=== PATIENT | female | born 1945 | race Caucasian/White ===

== ENCOUNTER 2025-03-01 21:23 | Emergency (ER) | payer MEDICARE, OTHER ==
[2025-03-01 23:01] LABS: #Basophils 0.08 10x3/uL (0.0-0.2); #Eosinophils 0.19 10x3/uL (0.0-0.7); #Monocytes 0.78 10x3/uL (0.11-0.59); #Neutrophils 3.66 10x3/uL (1.40-6.50); %Basophils 1.4 % (0.0-1.0); %Eosinophils 3.2 % (0.0-10.0); %Lymphocytes 20.1 % (21.0-51.0); %Monocytes 13.2 % (0.0-10.0); %Neutrophils 61.9 % (42.0-75.0); Hematocrit 37.3 % (36.0-47.0); Hemoglobin 12.9 g/dL (12.0-16.0); Mean Corpuscular Hemoglobin 30.6 pg (27.0-31.0); Mean Corpuscular Volume 88.4 fL (78.0-98.0); Platelet Count 255 10x3/uL (130-400); Red Blood Cell (RBC) Count 4.22 mill/uL (4.20-5.40); White Blood Cell (WBC) Count 5.91 10x3/uL (4.8-10.8)
[2025-03-01 23:58] LABS: ALT (SGPT) 8 U/L (Less than 34); AST (SGOT) 26 U/L (11-34); Albumin 4.2 g/dL (3.1-4.5); Alkaline Phosphatase 110 U/L (40-110); Anion Gap 16 mmol/L (10-20); BUN (Urea Nitrogen) 6 mg/dL (9.8-20.1); Bilirubin, Total 1.2 mg/dL (0.3-1.2); Calc. Creatinine Clearance 0 mL/min (70-130); Calcium 9.3 mg/dL (7.8-10.44); Carbon Dioxide 21 mmol/L (23-31); Chloride 103 mmol/L (98-107); Globulin 3.3 g/dL (2.4-3.5); Glucose 99 mg/dL (83-110); Potassium 4.0 mmol/L (3.5-5.1); Sodium 136 mmol/L (136-145)
[2025-03-02 00:33] LABS: INR-International Normal Ratio 1.0; PTT 27.0 sec (22.9-36.1); Prothrombin Time 13.4 sec (12.0-14.7)
[2025-03-02 00:58] LABS: Lipase 29 U/L (8-78); Magnesium 2.1 mg/dL (1.6-2.6)
[2025-03-02 01:48] LABS: Bacteria/HPF Rare-Few HPF (None Seen); CAUTI Indications for Culture Alt mental st,lethar; Glucose, Urine (Dipstick) Normal (Negative); Leukocyte 500 Leu/uL (Negative); Protein, Urine (Dipstick) Negative (Neg-Trace); Specific Gravity, Urine 1.011 (1.002-1.036); WBC/HPF 21-50 HPF (0-3)
[2025-03-02 01:50] LABS: Urine Culture Reflex Yes Yes
== END 2025-03-02 02:23 | disposition home or self-care (01) ==
LOC: ERS 21:23
DX: N39.0 Urinary tract infection, site not specified (principal); I10 Essential (primary) hypertension
CPT/HCPCS: 70450; 80053; 81001; 83690; 83735; 83880; 84443; 84484; 85025; 85610; 85730; 87086; 93005